=== PATIENT | male | born 1975 | race Caucasian/White ===

== ENCOUNTER 2019-12-24 13:05 | Emergency (ER) | payer SELFPAY ==
[~2019-12-24] VITALS: Ht 193 cm; Wt 117.0 kg
[2019-12-24 13:13] VITALS: BP 140/77
--- NOTE | 2019-12-24 13:32 | NUR ---
CALLED FOR PT IN [facility]. NO ANSWER.
[2019-12-24] MEDS ORDERED: LIDOCAINE-MPF 1%, 5ML ONE (14:01)
[2019-12-24] MEDS ORDERED: LIDOCAINE-MPF 1%, 5ML INFIL ONE (14:30)
[2019-12-24] MEDS ORDERED: OXYcodone/APAP 5/325MG TABLET ONE (15:09)
[2019-12-24] MEDS ORDERED: OXYcodone/APAP 5/325MG TABLET PO ONE (15:30)
== END 2019-12-24 16:02 | disposition home or self-care (01) ==
LOC: ED 15:56
DX: S01.511A Laceration without foreign body of lip, initial encounter (principal); V89.2XXA Person injured in unspecified motor-vehicle accident, traffic, initial encounter; Y93.89 Activity, other specified; Y92.488 Other paved roadways as the place of occurrence of the external cause; Y99.8 Other external cause status
CPT/HCPCS: 12053; 99284